=== PATIENT | female | born 1960 | race Caucasian/White ===

== ENCOUNTER → 2019-11-25 14:10 | Outpatient (BNVA) | payer SELFPAY | PROVIDERS: Family Provider Nurse Practitioner; PCP Family Medicine; Visit Provider Family Medicine | DX: E78.2 Mixed hyperlipidemia (principal); K21.9 Gastro-esophageal reflux disease without esophagitis | CPT/HCPCS: 80053 ==

== ENCOUNTER → 2020-04-08 10:08 | Outpatient (BNVA) | payer OTHER, SELFPAY | PROVIDERS: Family Provider Nurse Practitioner; PCP Family Medicine; Visit Provider Family Medicine | DX: E78.2 Mixed hyperlipidemia (principal); M76.31 Iliotibial band syndrome, right leg | CPT/HCPCS: 80061 ==

== ENCOUNTER → 2020-06-01 09:23 | Outpatient (BNVA) | payer OTHER, SELFPAY | PROVIDERS: Family Provider Nurse Practitioner; PCP Family Medicine; Visit Provider Internal Medicine | DX: Z01.812 Encounter for preprocedural laboratory examination (principal); Z20.828 Contact with and (suspected) exposure to other viral communicable diseases | CPT/HCPCS: 87635 ==

== ENCOUNTER 2020-06-06 07:58 | Day surgery (SDC) | payer OTHER, SELFPAY ==
[2020-06-02 10:29] VITALS: BMI 40.2
[2020-06-06 08:12] VITALS: BP 127/88; PULSE 93; RESP 16; TEMP 36.2; O2SAT 97
[2020-06-06] MEDS: sodium chloride 0.9% 1,000 ML 30 ML IV (08:20)
--- NOTE | 2020-06-06 08:46 | P.ANESASSM_ITS ---
Pre-Anesthetic Assessment Pre-Anesthetic Assessment: Height/Weight: Height 1.57 m Weight 99.79 kg Temp Pulse Resp BP Pulse Ox 97.1 F L 93 16 127/88 97 06/06/20 08:12 06/06/20 08:12 06/06/20 08:12 06/06/20 08:12 06/06/20 08:12 Preop Diagnosis: screening Proposed Procedure: Operation Date: 06/06/20 09:00 Proposed Procedures p Colonoscopy 89885 Z12.11(Not Applicable) - Bk Abbasi MD Familial anesthetic complications: None Was Beta Dalia taken within 24 hours: N/A Last intake: Intake Last Liquid Date 06/05/20 Last Liquid Time 23:00 Last Solid Date 06/04/20 Last Solid Time 19:00 Social: Social History: No alcohol and No tobacco Exam: Pre-Anes Outpt Exam: alert, oriented x 3, clear to auscultation bilatera lly and regular rate & rhythm Airway: Cervical ROM: WNL MP: 2 Dentition: Full Pulmonary: Pulmonary: Sleep apnea CV/HEM: CV/HEM: HTN GI: GI: GERD Metabolic: Metabolic: Hyperlipidemia, Morbid obesity and Thyroid Neuropsych: Neuropsych: Anxiety, Depression and Neuropathy Anesthetic Plan: ASA status: 3 Anesthesia: MAC Risk of > 500 ml blood loss (7ml/kg in children): No PFSH Anesthesia PFSH: Medical History Acid reflux Adult onset hypothyroidism Anxiety and depression Essential (primary) hypertension Mixed hyperlipidemia Obesity CAL on CPAP Surgical History History of hysterectomy 2003 with right SO has left ovary History of tubal ligation Status post rotator cuff repair 2011 Left Family History Family/Other Diabetes Heart disease Social History Smoking and tobacco status: never smoked Second hand smoke exposure: No Smoking risk assessment/counseling performed?: No Alcohol intake: never Desire information about alcohol rehabilitation?: No Counseling given: No Desire information about substance/drug rehabilitation?: No Counseling given: No Caregiver/support person: No Lives independently: Yes Household members: spouse Housing: House Marital status: Number of children: 3 service: No Current occupational status: employed Pets and animals: No History of recent travel: No Current gender identity: Female Data Anesthesia Cardiac Studies: No Data to Display
--- NOTE | 2020-06-06 09:31 | W.PM.OPSUD ---
Surgery/Procedure H&P Update DATE OF PROCEDURE: June 06, 2020 DATE H&P PERFORMED: 05/23/20 PREOP DIAGNOSIS: screening PLANNED PROCEDURE: Operation Date: 06/06/20 09:00 Proposed Procedures p Colonoscopy 06501 Z12.11(Not Applicable) - Bk Abbasi MD
[2020-06-06 10:34] VITALS: BP 126/76; PULSE 82; RESP 20; TEMP 36.2; O2SAT 93
[2020-06-06 10:49] VITALS: BP 131/78; PULSE 84; RESP 16; TEMP 36.4; O2SAT 98
--- NOTE | 2020-06-06 15:49 | ANE.PACU2 ---
Inpatient post-anesthesia follow up: Airway intact: Yes Vital signs: Temperature 97.5 F Pulse Rate 84 Respiratory Rate 16 Blood Pressure 131/78 Pulse Oximetry 98 Oxygen Delivery Me thod Room Air Oxygen Flow Rate 2 Fraction of Inspir ed Oxygen Hydration adequate: Yes Nausea and vomiting: No Pain level: 2 Mental status: Baseline
== END 2020-06-06 11:35 | disposition home or self-care (01) ==
PROVIDERS: PCP Family Medicine; Visit Provider Internal Medicine
PROC: 0DJD8ZZ Inspection of Lower Intestinal Tract, Via Natural or Artificial Opening Endoscopic (ICD-10-PCS; CPT 45378; principal; 2020-06-06 09:00)
DX: Z12.11 Encounter for screening for malignant neoplasm of colon (principal); Z79.82 Long term (current) use of aspirin; E03.9 Hypothyroidism, unspecified; F41.9 Anxiety disorder, unspecified; F32.9 Major depressive disorder, single episode, unspecified; K21.9 Gastro-esophageal reflux disease without esophagitis; I10 Essential (primary) hypertension; E78.2 Mixed hyperlipidemia; G47.33 Obstructive sleep apnea (adult) (pediatric); E66.01 Morbid (severe) obesity due to excess calories; Z68.41 Body mass index [BMI] 40.0-44.9, adult; Z83.3 Family history of diabetes mellitus; Z82.49 Family history of ischemic heart disease and other diseases of the circulatory system
CPT/HCPCS: 45378; J2704; J7030

== ENCOUNTER 2020-06-27 13:21 | Outpatient (CLI) | payer OTHER, SELFPAY ==
--- NOTE | 2020-06-27 13:27 | MM_ITS ---
WS: [id number] BILATERAL DIGITAL SCREENING MAMMOGRAPHY WITH CAD CLINICAL INFORMATION: SCREENING HISTORY: Screening mammogram. No current complaints. COMPARISON: February 26, 2019 TECHNIQUE: Bilateral CC and MLO views. FINDINGS: Scattered fibroglandular densities bilaterally. No suspicious focal mass, asymmetry, calcifications, or architectural distortion. No evidence of malignancy. Punctate and lucent centered calcifications. A few stable intramammary lymph nodes. MM/[place] [id number] IMPRESSION: BI-RADS: 2-Benign FOLLOW UP: 1 Year Follow-up Recommend return to annual screening mammography.
== END 2020-06-27 13:22 | disposition home or self-care (01) ==
LOC: RADSHAW 13:25
PROVIDERS: PCP Family Medicine; Visit Provider Family Medicine
DX: Z12.31 Encounter for screening mammogram for malignant neoplasm of breast (principal)
CPT/HCPCS: 77067

== ENCOUNTER → 2020-10-03 09:39 | Outpatient (BNVA) | payer OTHER, SELFPAY | PROVIDERS: PCP Family Medicine; Visit Provider Family Medicine | DX: I10 Essential (primary) hypertension (principal); E03.8 Other specified hypothyroidism; F41.9 Anxiety disorder, unspecified; F32.9 Major depressive disorder, single episode, unspecified | CPT/HCPCS: 80053; 82043; 84443; 85025 ==

== ENCOUNTER → 2020-10-04 11:45 | Outpatient (BNVA) | payer OTHER, SELFPAY | PROVIDERS: PCP Family Medicine; Visit Provider Family Medicine | DX: I10 Essential (primary) hypertension (principal); E03.8 Other specified hypothyroidism; F41.9 Anxiety disorder, unspecified; F32.9 Major depressive disorder, single episode, unspecified; D64.9 Anemia, unspecified | CPT/HCPCS: 82607; 82728; 83550 ==

== ENCOUNTER → 2020-10-09 15:07 | Outpatient (BNVA) | payer OTHER, SELFPAY | PROVIDERS: PCP Family Medicine; Visit Provider Family Medicine Adult Medicine | DX: S52.514A Nondisplaced fracture of right radial styloid process, initial encounter for closed fracture (principal); X58.XXXA Exposure to other specified factors, initial encounter | CPT/HCPCS: 73110 ==

== ENCOUNTER 2020-10-12 09:55 | Outpatient (CLI) | payer OTHER, SELFPAY | END 2020-10-12 09:56 | disposition home or self-care (01) | LOC: SPT 09:55 | PROVIDERS: PCP Family Medicine; Visit Provider Orthopaedic Surgery | DX: Z46.89 Encounter for fitting and adjustment of other specified devices (principal); S52.591D Other fractures of lower end of right radius, subsequent encounter for closed fracture with routine healing; X58.XXXD Exposure to other specified factors, subsequent encounter | CPT/HCPCS: 97760; L3982 ==

== ENCOUNTER → 2020-10-26 15:15 | Outpatient (BNVA) | payer OTHER, SELFPAY | PROVIDERS: PCP Family Medicine; Visit Provider Orthopaedic Surgery | DX: S52.501A Unspecified fracture of the lower end of right radius, initial encounter for closed fracture (principal); X58.XXXA Exposure to other specified factors, initial encounter | CPT/HCPCS: 73110 ==

== ENCOUNTER → 2020-11-16 14:54 | Outpatient (BNVA) | payer OTHER, SELFPAY | PROVIDERS: PCP Family Medicine; Visit Provider Orthopaedic Surgery | DX: S52.501A Unspecified fracture of the lower end of right radius, initial encounter for closed fracture (principal); X58.XXXA Exposure to other specified factors, initial encounter | CPT/HCPCS: 73110 ==

== ENCOUNTER → 2020-12-14 10:11 | Outpatient (BNVA) | payer OTHER, SELFPAY | PROVIDERS: PCP Family Medicine; Visit Provider Orthopaedic Surgery | DX: S52.501A Unspecified fracture of the lower end of right radius, initial encounter for closed fracture (principal); X58.XXXA Exposure to other specified factors, initial encounter | CPT/HCPCS: 73110 ==

== ENCOUNTER → 2021-02-21 15:12 | Outpatient (BNVA) | payer OTHER, SELFPAY | PROVIDERS: PCP Family Medicine; Visit Provider Family Medicine | DX: D50.9 Iron deficiency anemia, unspecified (principal) | CPT/HCPCS: 82728; 83550; 85025 ==

== ENCOUNTER → 2021-03-28 15:12 | Outpatient (BNVA) | payer OTHER, SELFPAY | PROVIDERS: PCP Family Medicine; Visit Provider Nurse Practitioner | DX: S69.92XA Unspecified injury of left wrist, hand and finger(s), initial encounter (principal); S52.532A Colles' fracture of left radius, initial encounter for closed fracture; X58.XXXA Exposure to other specified factors, initial encounter | CPT/HCPCS: 73110 ==

== ENCOUNTER → 2021-04-04 09:51 | Outpatient (BNVA) | payer OTHER, SELFPAY | PROVIDERS: PCP Family Medicine; Referring Provider Nurse Practitioner; Visit Provider Orthopaedic Surgery | DX: S59.912A Unspecified injury of left forearm, initial encounter (principal); S52.532A Colles' fracture of left radius, initial encounter for closed fracture; X58.XXXA Exposure to other specified factors, initial encounter | CPT/HCPCS: 73110 ==

== ENCOUNTER 2021-04-04 11:34 | Outpatient (CLI) | payer OTHER, SELFPAY | END 2021-04-04 11:35 | disposition home or self-care (01) | LOC: SPT 11:34 | PROVIDERS: PCP Family Medicine; Visit Provider Orthopaedic Surgery | DX: Z46.89 Encounter for fitting and adjustment of other specified devices (principal); S52.592D Other fractures of lower end of left radius, subsequent encounter for closed fracture with routine healing; X58.XXXD Exposure to other specified factors, subsequent encounter | CPT/HCPCS: 97760; L3982 ==

== ENCOUNTER → 2021-04-10 14:27 | Outpatient (BNVA) | payer OTHER, SELFPAY | PROVIDERS: PCP Family Medicine; Visit Provider Orthopaedic Surgery | DX: S52.532A Colles' fracture of left radius, initial encounter for closed fracture (principal); S52.615A Nondisplaced fracture of left ulna styloid process, initial encounter for closed fracture; X58.XXXA Exposure to other specified factors, initial encounter | CPT/HCPCS: 73110 ==

== ENCOUNTER → 2021-04-19 14:38 | Outpatient (BNVA) | payer OTHER, SELFPAY | PROVIDERS: PCP Family Medicine; Visit Provider Orthopaedic Surgery | DX: S52.592A Other fractures of lower end of left radius, initial encounter for closed fracture (principal); S52.615A Nondisplaced fracture of left ulna styloid process, initial encounter for closed fracture; X58.XXXA Exposure to other specified factors, initial encounter; Z01.812 Encounter for preprocedural laboratory examination; Z20.822 Contact with and (suspected) exposure to COVID-19 | CPT/HCPCS: 73110; 87635 ==

== ENCOUNTER 2021-04-20 09:05 | Day surgery (SDC) | payer OTHER, SELFPAY ==
[2021-04-20] VITALS (14 sets, daily range): BP systolic 148–172; BP diastolic 78–105; PULSE 70–106; RESP 6–18; TEMP 36.3–36.7; O2SAT 93–100
--- NOTE | 2021-04-20 | SCC_ITS ---
Procedure Done: Open reduction and internal fixation left three-part distal radius fracture 51. seconds of fluoroscopic guidance, for a cumulative dose of 0.99 mGy, was provided to Dr. Ruiz by the radiology department. C-arm images of the LEFT wrist were saved for the patient's permanent record. [facility]ITALRaymond
--- NOTE | 2021-04-20 | XR_ITS ---
WS: [id number] INTRAOPERATIVE TECHNIQUE: 4 Spot fluoroscopic images for intraoperative purposes. FLUOROSCOPY TIME: 51 seconds CLINICAL INFORMATION: fracture of left distal radius COMPARISON: None. FINDINGS: Intraoperative changes plate and screw fixation distal radius. Hardware appears in good position. Sta ble ulna styloid avulsion. XR/XR wrist LT 2V [id number] IMPRESSION: Images obtained for intraoperative purposes.
[2021-04-20] MEDS: sodium chloride 0.9% 1,000 ML 30 ML IV (09:51)
--- NOTE | 2021-04-20 09:54 | ANES.PREANE2 ---
Pre-Anesthetic Assessment Pre-Anesthetic Assessment: Height/Weight: Height 1.57 m Weight 102.058 kg Temp Pulse Resp BP Pulse Ox 97.5 F L 88 18 150/78 94 04/20/21 09:48 04/20/21 09:48 04/20/21 09:48 04/20/21 09:48 04/20/21 09:48 Preop Diagnosis: FractureLeft distal radius Proposed Procedure: Operation Date: 04/20/21 10:20 Proposed Procedures p ORIF Wrist 69847/colles fracture of left S52. 532A(Left) - Js Ruiz MD Was Beta Dalia taken within 24 hours: N/A Was Clonidine taken within 24 hours: N/A Last intake: Intake Last Liquid Date 04/19/21 Last Liquid Time 21:00 Last Solid Date 04/19/21 Last Solid Time 21:00 Social: Social History: No alcohol and No tobacco Exam: Pre-Anes Outpt Exam: alert, oriented x 3, clear to auscultation bilaterally and regular rate & rhythm Airway: Submandibular: WNL Cervical ROM: WNL MP: 2 Dentition: Full Pulmonary: Pulmonary: Sleep apnea CV/HEM: CV/HEM: Anemia and HTN GI: GI: GERD Metabolic: Metabolic: Hyperlipidemia and Morbid obesity Neuropsych: Neuropsych: Anxiety and Depression Anesthetic Plan: ASA status: 3 Anesthesia: General Risk of > 500 ml blood loss (7ml/kg in children): No Meds/Allergies Current Medications: Current Medications Generic Name Dose Route Start Last Admin Trade Name Freq PRN Reason Stop Dose Admin Sodium Chloride 1,000 mls @ 30 ml s/hr 04/20/21 09:15 04/20/21 09:51 Sodium Chloride 0.9% IV 04/21/21 09:14 30 mls/hr .Q24H BALDO Administration PFSH Anesthesia PFSH: Medical History Acid reflux Adult onset hypothyroidism Anxiety and depression Distal radius fracture, right Essential (primary) hypertension Mixed hyperlipidemia Obesity CAL on CPAP Surgical History History of hysterectomy 2003 with right SO has left ovary History of tubal ligation Status post rotator cuff repair 2011 Left Family History Family/Other Diabetes Heart disease Social History Second hand smoke exposure: No Smoking risk assessment/counseling performed?: No Alcohol intake: never Desire information about alcohol rehabilitation?: No Counseling given: No Desire information about substance/drug rehabilitation?: No Counseling given: No Caregiver/support person: No Lives independently: Yes Household members: spouse Housing: House Marital status: Number of children: 3 service: No Current occupational status: employed Pets and animals: No History of recent travel: No Current gender identity: Female Data Anesthesia Cardiac Studies: No Data to Display
--- NOTE | 2021-04-20 11:21 | W.PM.OPSUD ---
Surgery/Procedure H&P Update DATE OF PROCEDURE: April 20, 2021 DATE H&P PERFORMED: 04/19/21 H&P UPDATE INFORMATION: I have reviewed H&P completed within last 30 days PREOP DIAGNOSIS: FractureLeft distal radius PLANNED PROCEDURE: Operation Date: 04/20/21 10:20 Proposed Procedures p ORIF Wrist 87987/colles fracture of left S52. 532A(Left) - Js Ruiz MD
--- NOTE | 2021-04-20 12:52 | P.OP_ITS ---
Operative Report Date of procedure: April 20, 2021 Pre-op Diagnosis: 3 part fracture Left distal radius Post-op diagnosis: same Post-op Findings: The patient had a intra-articular fracture of the left distal radius with approximately 40 degrees of dorsal angulation of the articular surface Procedure Done: Open reduction and internal fixation left three-part distal radius fracture Implants: [employer] short intermediate plate Surgeon: Js Ruiz Anesthesia: General Estimated blood loss (mL): 10 Complications: None Findings: The patient had a intra-articular fracture of the left distal radius with approximately 40 degrees of dorsal angulation of the articular surface. Associated ulnar styloid fracture was identified Disposition: PACU Brief History: Ms. Justin sustained a fracture of the left distal radius with progressive loss of volar articular tilt and intra-articular displacement. Surgical stabilization was chosen to return the distal radius to more normal radiographic parameters ensuring the least pain and best functional outcome Procedure: Initial attempts were made at closed reduction however a satisfactory stable reduction could not be obtained. A decision was made to proceed with open reduction internal fixation.A 5 cm long incision was made along over the flexor carpi radialis tendon. Dissection was carried down through the tendon sheath. Dissection was carried down bluntly to the pronator quadratus. The pr onator quadratus was elevated off of the distal radius leaving a cuff for later repair. Closed reduction was accomplished of the distal radius. A [place] [employer] intermediate short plate was applied. With closed measures through the joint it was a difficult to return the distal radius back to normal volar tilt. A small 5 mm dorsal accessory incision was made. Dissection was carried down bluntly to the distal radius. A freer elevator was then passed across the fracture and retracted distally bringing the distal radius to a more normal volar tilt. The plate was fixed distally with 4 2.4 mm locking screws and proximally with 3 bicortical screws. Intraoperative imaging showed excellent position of the hardware. The wound was irrigated with saline. The pronator quadratus was reapproximated with 2-0 Vicryl. Subcutaneous tissues were closed with 2-0 Vicryl. The skin was closed with skin katharine. Sterile dressings were applied. Repeat prefabricated splint was applied. The patient was taken to outpatient surgery in stable condition.
[2021-04-20] MEDS: fentaNYL 50 mcg/mL INJ 2mL IVP ×2 (13:06→13:12)
[2021-04-20] MEDS: HYDROmorphone 1 mg/mL INJ 1 mL 0.5 MG IVP (13:21)
[2021-04-20] MEDS: HYDROcodone-acetaminophen 5-325 mg Tablet 1 TAB PO (13:37)
--- NOTE | 2021-04-20 16:20 | ANE.PACU2 ---
Inpatient post-anesthesia follow up: Airway intact: Yes Vital signs: Temperature 98.1 F Pulse Rate 70 Respiratory Rate 16 Blood Pressure 167/94 Pulse Oximetry 94 Oxygen Delivery Me thod Room Air Oxygen Flow Rate 10 Fraction of Inspir ed Oxygen Hydration adequate: Yes Nausea and vomiting: No Pain level: 2 Mental status: Baseline
== END 2021-04-20 14:25 | disposition home or self-care (01) ==
PROVIDERS: PCP Family Medicine; Visit Provider Orthopaedic Surgery
PROC: (CPT 25609; principal; 2021-04-20 10:20)
DX: S52.572A Other intraarticular fracture of lower end of left radius, initial encounter for closed fracture (principal); X58.XXXA Exposure to other specified factors, initial encounter; I10 Essential (primary) hypertension; K21.9 Gastro-esophageal reflux disease without esophagitis; E78.2 Mixed hyperlipidemia; E66.01 Morbid (severe) obesity due to excess calories; Z68.41 Body mass index [BMI] 40.0-44.9, adult; F41.9 Anxiety disorder, unspecified; F32.9 Major depressive disorder, single episode, unspecified; E03.9 Hypothyroidism, unspecified; G47.33 Obstructive sleep apnea (adult) (pediatric); Z82.49 Family history of ischemic heart disease and other diseases of the circulatory system; Z83.3 Family history of diabetes mellitus; Z79.82 Long term (current) use of aspirin
CPT/HCPCS: 25609; 73100; 76000; 96372; C1713; J0690; J1100; J1170; J1580; J2405; J2704; J2710; J2795; J3010; J3490; J7030

== ENCOUNTER → 2021-05-24 10:53 | Outpatient (BNVA) | payer OTHER, SELFPAY | PROVIDERS: PCP Family Medicine; Visit Provider Orthopaedic Surgery | DX: S52.532A Colles' fracture of left radius, initial encounter for closed fracture (principal); X58.XXXA Exposure to other specified factors, initial encounter | CPT/HCPCS: 73110 ==

== ENCOUNTER → 2021-09-13 08:07 | Outpatient (BNVA) | payer OTHER, SELFPAY | PROVIDERS: PCP Family Medicine; Visit Provider Family Medicine | DX: Z12.31 Encounter for screening mammogram for malignant neoplasm of breast (principal); I10 Essential (primary) hypertension; E78.2 Mixed hyperlipidemia; E03.8 Other specified hypothyroidism | CPT/HCPCS: 80053; 80061; 82043; 84443; 85025 ==

== ENCOUNTER 2021-12-27 11:57 | Outpatient (CLI) | payer OTHER, SELFPAY ==
--- NOTE | 2021-12-27 12:06 | MM_ITS ---
WS: [id number] Bilateral screening 3D tomosynthesis digital mammogram, 12/27/2021 Clinical Data: SCREENING Comparison: 06/27/2020, 02/26/2019, 01/17/2018, 01/14/2017, 09/30/2015, 09/25/2012, 08/24/2011, 12/08/2007, 11/13. Findings: The breast parenchymal pattern shows fat replacement. No spiculated masses or clustered calcification s are seen. There are no secondary signs of carcinoma. Mole markers are on both breasts. MM/[place] [id number] Impression: 1. Negative bilateral mammogram unchanged. 2. Recommend annual screening mammograms. BIRADS: 1-Negative FOLLOW UP: 1 Year Follow-up The CAD checkerer hand was used.
== END 2021-12-27 11:58 | disposition home or self-care (01) ==
LOC: RAD 11:58
PROVIDERS: PCP Family Medicine; Visit Provider Family Medicine
DX: Z12.31 Encounter for screening mammogram for malignant neoplasm of breast (principal)
CPT/HCPCS: 77063; 77067

== ENCOUNTER 2022-02-15 11:57 | Outpatient (CLI) | payer OTHER, SELFPAY ==
--- NOTE | 2022-02-15 12:00 | USCV_ITS ---
Rosa Justin Age: 61 Gender: F : 1960 Exam Date: 02/15/2022 12:39 Ordering Phys: Leydi Bojorquez DO Technologist: Neftali Pozo [place] [facility] [place] Indication: SYNCOPE AND COLLAPSE BP: 142 / 78 HR: 74 Rhythm: Sinus Technical Quality: Adequate MEASUREMENTS (Male / Female) Normal Values 2D ECHO LV Diastolic Diameter PLAX 3.8 cm 4.2 - 5.9 / 3.9 - 5.3 cm LV Systolic Diameter PLAX 2.7 cm IVS Diastolic Thickness 0.9 cm 0.6 - 1.0 / 0.6 - 0.9 cm IVS Systolic Thickness 1.5 cm LVPW Diastolic Thickness 1.1 cm 0.6 - 1.0 / 0.6 - 0.9 cm LVPW Systolic Thickness 1.4 cm LVOT Diameter 2.0 cm LV Ejection Fraction 2D Teich 57.5 % LV Ejection Fraction MOD 2C 65.9 % LV Ejection Fraction 2C AL 67.1 % LA Diameter 3.8 cm LA Width 3.2 cm LA Height 4.3 cm RA Width 3.3 cm RA Height 4.2 cm Aorta at Sinotubular Diameter 2.9 cm IVC Diameter 1.5 cm M-MODE Aortic Annulus Diameter 3.1 cm LA Ao Ratio MM 1.4 MV E Point Septal Separation 0.5 cm DOPPLER AV Peak Velocity 109.0 cm/s LVOT Peak Velocity 80.0 cm/s AV Area Cont Eq vti 2.4 cm squared AV Area Cont Eq pk 2.3 cm squared MV Peak Velocity 75.0 cm/s MV Area PHT 5.6 cm squared Mitral E to A Ratio 0.8 MV E' Velocity 33.0 cm/s Mitral E to MV E' Ratio 5.2 Mitral E to LV E' Lateral Ratio 4.2 Mitral E to LV E' Septal Ratio 6.8 TR Peak Velocity 229.8 cm/s TR Peak Gradient 21.1 mmHg TR Mean Velocity 187.9 cm/s TR Mean Gradient 14.9 mmHg TR Velocity Time Integral 77.1 cm Right Atrial Pressure 3.0 mmHg Pulmonary Artery Systolic Pressu 24.1 mmHg PV Peak Velocity 72.0 cm/s RV Acceleration Time 0.1 s RV Ejection Time 0.3 s RV AcT/ET 0.4 FINDINGS Left Ventricle Normal left ventricular size, systolic function and wall thickness, with no regional wall motion abnormalities. Left ventricular ejection fraction is estimated at 70 %. Normal diastolic function. Right Ventricle Normal right ventricular size and systolic function. Right ventricular systolic pressure 27 mmHg. Right Atrium Normal right atrial size. Left Atrium Normal left atrial size. Mitral Valve Structurally normal mitral valve. No mitral valve stenosis. Trace mitral valve regurgitation. Aortic Valve Structurally normal trileaflet aortic valve. No aortic valve stenosis. No aortic valve regurgitation. Tricuspid Valve Structurally normal tricuspid valve. No tricuspid valve stenosis. [id number]-[id number] tricuspid valve regurgitation. Pulmonic Valve Structurally normal pulmonic valve. No pulmonary valve stenosis. No pulmonary valve regurgitation. Pericardium No pericardial effusion. Aorta Normal size aortic root and proximal ascending aorta. IVC Normal IVC dimension with >50% respiratory change of the inferior vena cava. CONCLUSIONS 1. Normal left ventricular size, systolic function and wall thickness, with no regional wall motion abnormalities. Left ventricular ejection fraction is estimated at 70 %. Normal diastolic function. 2. Wfrj-fo-suwullns tricuspid valve regurgitation. 3. Pulmonary artery pressure estimated at 27 mm Hg. 4. No prior similar studies to compare. Hailey Valle MD (Electronically Signed) Final Date: 18 February 2022 09:53 S
--- NOTE | 2022-02-15 12:45 | USCV_ITS ---
Rosa Justin Age: 61 Gender: F : 1960 Exam Date: 02/15/2022 12:16 Ordering Phys: Leydi Bojorquez DO Technologist: Neftali Pozo [place] [facility] [place]ication: SYNCOPE AND COLLAPSE Risk Factors: Previous Vascular Surgery: Right Brachial BP: / Left Brachial BP: / Right Left Velocity (cm/s) Spectral Plaque Velocity (cm/s) Spectral Plaque Syst/Diast Broadening Syst/Diast Broadening 61.60/ 14.50 Prox CCA 93.00 / 18.20 92.60/ 17.60 Mid CCA 63.80 / 14.50 94.80/ 23.20 Distal CCA 64.40 / 19.70 55.90/ 8.50 Prox ICA 37.70 / 13.90 55.00/ 21.50 Mid ICA 47.50 / 18.80 58.60/ 21.10 Distal ICA 58.00 / 22.50 95.50 ECA 91.70 0.59 ICA/CCA 0.75 Antegrade Vertebral Antegrade 23.10/ 9.40 cm/s 52.00/ 15.50 cm/s Tri Subclavian Tri 76.90 88.00 FINDINGS Comparison: none available. No significant elevation of systolic or diastolic velocities. Waveforms are normal. No significant amount of calcified plaque or intimal thickening identified. CONCLUSIONS Normal carotid doppler ultrasound. Dr. Kailee Garza DO (Electronically Signed) Final Date: 15 February 2022 14:58 S
== END 2022-02-15 11:58 | disposition home or self-care (01) ==
LOC: RAD 11:59
PROVIDERS: PCP Family Medicine; Visit Provider Family Medicine
DX: R55 Syncope and collapse (principal); I07.1 Rheumatic tricuspid insufficiency
CPT/HCPCS: 93306; 93880

== ENCOUNTER 2022-04-05 15:18 | Outpatient (CLI) | payer OTHER, SELFPAY ==
--- NOTE | 2022-04-05 15:15 | MR_ITS ---
WS: [id number] MRI CERVICAL SPINE NONCONTRAST TECHNIQUE: Sagittal T1, T2 and STIR imaging. Axial T2, gradient, and fiesta imaging. CLINICAL INFORMATION: DJD cervical spine COMPARISON: None. FINDINGS: Straightening of the normal cervical lordosis. Cord signal is normal. No high-grade central canal ana m rowing. C2-C3: Mild facet arthropathy. Spinal canal and foramen are patent. C3-C4: Mild facet arthropathy. Spinal canal and foramen are patent. C4-C5: Minimal disc bulging. Mild facet arthropathy. Spinal canal is patent. Mild LEFT foraminal narr owing. C5-C6: Minimal disc bulging with osteophytic ridging. Moderate LEFT facet arthropathy. Mild LEFT fora wilberto narrowing. Spinal canal is patent. C6-C7: Mild disc bulging with osteophytic ridging. Facet arthropathy. Mild LEFT and no significant RI GHT foraminal narrowing. C7-T1: Osteophytic ridging. Moderate LEFT C7-T1 bony foraminal narrowing. RIGHT foramen is patent. Sp inal canal is patent. Visualized brain stem structures: Normal. Prevertebral soft tissues: Normal. MR/MR cervical spin wo con* [id number] IMPRESSION: 1. Straightening of the normal cervical lordosis. Cord signal is normal. 2. Mild bony foraminal narrowing LEFT C3-C4, LEFT C4-C5, and LEFT C5-C6. 3. Moderate LEFT C7-T1 bony foraminal narrowing. 4. Moderate facet arthropathy LEFT C5-C6. 5. Cord signal is normal.
== END 2022-04-05 15:19 | disposition home or self-care (01) ==
PROVIDERS: PCP Family Medicine; Visit Provider Family Medicine
DX: M47.812 Spondylosis without myelopathy or radiculopathy, cervical region (principal)
CPT/HCPCS: 72141

== ENCOUNTER → 2022-09-20 07:55 | Outpatient (BNVA) | payer OTHER, SELFPAY | PROVIDERS: PCP Family Medicine; Visit Provider Family Medicine | DX: I10 Essential (primary) hypertension (principal); E78.2 Mixed hyperlipidemia; E03.8 Other specified hypothyroidism; D50.9 Iron deficiency anemia, unspecified; D50.8 Other iron deficiency anemias; F41.9 Anxiety disorder, unspecified; F32.9 Major depressive disorder, single episode, unspecified; Z12.31 Encounter for screening mammogram for malignant neoplasm of breast | CPT/HCPCS: 80053; 80061; 82043; 82728; 83550; 84443; 85025 ==

== ENCOUNTER 2022-12-28 07:46 | Outpatient (CLI) | payer OTHER, SELFPAY ==
--- NOTE | 2022-12-28 07:51 | MM_ITS ---
WS: [id number] Bilateral screening 3D tomosynthesis digital mammogram, 12/28/2022 Clinical Data: screening mammogram Comparison: 11/26/2021, 06/27/2020, 02/26/2019, 01/17/2018, 01/14/2017, 09/30/2015, 09/25/2012, 08/24/2011, 2007, 11/13/2006. Findings: The breast parenchymal pattern shows fat replacement. No spiculated masses or clustered calcification s are seen. There are no secondary signs of carcinoma. Impression: 1. Negative bilateral mammogram unchanged. 2. Recommend annual screening mammograms. MM/[place] [id number] BIRADS: 1-Negative FOLLOW UP: 1 Year Follow-up The CAD thread checker was used.
== END 2022-12-28 07:47 | disposition home or self-care (01) ==
PROVIDERS: PCP Family Medicine; Visit Provider Family Medicine
DX: Z12.31 Encounter for screening mammogram for malignant neoplasm of breast (principal)
CPT/HCPCS: 77063; 77067; 80053; 80061; 82043; 82728; 83550; 84443; 85025

== ENCOUNTER → 2023-03-21 08:19 | Outpatient (BNVA) | payer OTHER, SELFPAY | PROVIDERS: PCP Family Medicine; Visit Provider Family Medicine | DX: E03.8 Other specified hypothyroidism (principal); I10 Essential (primary) hypertension; F41.9 Anxiety disorder, unspecified; F32.9 Major depressive disorder, single episode, unspecified; M53.3 Sacrococcygeal disorders, not elsewhere classified; G89.29 Other chronic pain | CPT/HCPCS: 84443 ==

== ENCOUNTER → 2023-09-19 08:21 | Outpatient (BNVA) | payer OTHER, SELFPAY | PROVIDERS: PCP Family Medicine; Visit Provider Family Medicine | DX: I10 Essential (primary) hypertension (principal); Z13.6 Encounter for screening for cardiovascular disorders; E03.8 Other specified hypothyroidism; D50.9 Iron deficiency anemia, unspecified; D50.8 Other iron deficiency anemias; E78.2 Mixed hyperlipidemia; M53.3 Sacrococcygeal disorders, not elsewhere classified; G89.29 Other chronic pain; Z79.899 Other long term (current) drug therapy | CPT/HCPCS: 80053; 80061; 82043; 82728; 83550; 84443; 85025 ==

== ENCOUNTER 2023-10-09 08:28 | Outpatient (RCR) | payer OTHER, SELFPAY | END 2023-10-20 23:59 | disposition home or self-care (01) | LOC: SPT 08:28 | PROVIDERS: PCP Family Medicine; Visit Provider Family Medicine | DX: M53.3 Sacrococcygeal disorders, not elsewhere classified (principal); G89.29 Other chronic pain | CPT/HCPCS: 97110; 97161 ==

== ENCOUNTER 2023-10-28 11:06 | Outpatient (RCR) | payer OTHER, SELFPAY | END 2023-11-20 23:59 | disposition home or self-care (01) | LOC: SPT 11:06 | PROVIDERS: PCP Family Medicine; Visit Provider Family Medicine | DX: M53.3 Sacrococcygeal disorders, not elsewhere classified (principal); G89.29 Other chronic pain | CPT/HCPCS: 97110 ==

== ENCOUNTER → 2023-11-21 14:56 | Outpatient (BNVA) | payer OTHER, SELFPAY | PROVIDERS: PCP Family Medicine Adult Medicine; Visit Provider Family Medicine Adult Medicine | DX: E03.8 Other specified hypothyroidism (principal) | CPT/HCPCS: 84443 ==

== ENCOUNTER 2024-02-14 07:56 | Outpatient (CLI) | payer OTHER, SELFPAY ==
--- NOTE | 2024-02-14 08:03 | MM_ITS ---
WS: [id number] BILATERAL SCREENING DIGITAL TOMOSYNTHESIS MAMMOGRAM WITH CAD HISTORY: SCREENING COMPARISON: 12/28/2022, 12/27/2021 and 02/26/2019 Bilateral CC and MLO views with tomosynthesis and synthetic mammography submitted. Computer aided det ection analyzed. Breast composition: The breasts are almost entirely fatty. No suspicious masses, microcalcifications or architectural distortion. Scattered asymmetries and calcifications are stable. No suspicious group ing of calcification. MM/MM scr BI tomosynthesis [id number] IMPRESSION: BI-RADS: 2 - Benign. FOLLOW UP: 1 Year Follow-up
== END 2024-02-14 07:57 | disposition home or self-care (01) ==
LOC: RAD 07:56
PROVIDERS: PCP Family Medicine Adult Medicine; Visit Provider Family Medicine
DX: Z12.31 Encounter for screening mammogram for malignant neoplasm of breast (principal); R92.313 Mammographic fatty tissue density, bilateral breasts; N64.89 Other specified disorders of breast; R92.1 Mammographic calcification found on diagnostic imaging of breast
CPT/HCPCS: 77063; 77067

== ENCOUNTER → 2024-02-21 15:48 | Outpatient (BNVA) | payer OTHER, SELFPAY | PROVIDERS: PCP Family Medicine Adult Medicine; Visit Provider Family Medicine | DX: Z23 Encounter for immunization (principal); D50.8 Other iron deficiency anemias; E03.8 Other specified hypothyroidism | CPT/HCPCS: 83540; 84439; 84443; 85025 ==

== ENCOUNTER → 2024-08-20 08:30 | Outpatient (BNVA) | payer OTHER, SELFPAY | PROVIDERS: PCP Family Medicine; Visit Provider Family Medicine | DX: Z00.00 Encounter for general adult medical examination without abnormal findings (principal) | CPT/HCPCS: 80053; 80061; 84443; 85025 ==

== ENCOUNTER 2024-11-17 14:13 | Outpatient (CLI) | payer MEDICARE, OTHER, SELFPAY ==
--- NOTE | 2024-11-17 14:30 | XR_ITS ---
WS: [id number] SCREENING DEXA SCAN [employer] CLINICAL INFORMATION: screening; post menopausal FINDINGS: The L1-L4 bone mineral density measures 1.157 g/cm2. This corresponds to a T score score of -0.2 and Z score of 0.4. Left femoral neck bone mineral density measures 0.998 g/cm2. This corresponds to a T score of -0.1 and Z score of 0.4. Right femoral neck bone mineral density measures 1.040 g/cm2. This corresponds to a T score 0.3of and Z score of 0.7. Mean femoral neck bone mineral density measures 1.019 g/cm2. This corresponds to a T score of 0.1 and Z score of 0.5. XR/XR DEXA axial skeleton* [id number] IMPRESSION: Normal bone mineralization lumbar spine and femoral necks. Patient's FRAX calculated 10 year probability for major osteoporotic fracture i s 12.3% and osteoporotic hip fracture is 1.0%.
== END 2024-11-17 14:14 | disposition home or self-care (01) ==
LOC: RAD 14:17
PROVIDERS: PCP Family Medicine; Visit Provider Family Medicine
DX: Z13.820 Encounter for screening for osteoporosis (principal); Z78.0 Asymptomatic menopausal state
CPT/HCPCS: 77080

== ENCOUNTER → 2025-01-28 13:01 | Outpatient (BNVA) | payer MEDICARE, OTHER, SELFPAY | PROVIDERS: PCP Family Medicine; Visit Provider Family Medicine | DX: R10.11 Right upper quadrant pain (principal) | CPT/HCPCS: 80053; 83690; 85025 ==

== ENCOUNTER 2025-02-03 07:19 | Outpatient (CLI) | payer MEDICARE, OTHER, SELFPAY ==
--- NOTE | 2025-02-03 07:30 | US_ITS ---
WS: [id number] RIGHT UPPER QUADRANT ULTRASOUND HISTORY: postprandial nausea, bloating, epigastric pain COMPARISON: None available. Liver: 13.6 cm in length. Normal size liver and echogenicity. No bile duct dilatation or mass. Portal Vein: Normal hepatopetal flow with monophasic waveform. Gallbladder: Normally distended gallbladder with no stones or wall thickening. CBD: 0.4 cm Pancreas: Normal size and echogenicity. Right kidney: 8.0 cm in length. Kidney is measuring low normal length. No hydronephrosis or mass. No significant cortical thinning. Aorta and IVC: Unremarkable abdominal aorta and IVC. No ascites. Small RIGHT pleural effusion. US/US abdomen limited [id number] IMPRESSION: 1. Negative gallbladder. 2. Mild atrophy RIGHT kidney. No obstruction. 3. Negative liver. 4. Small RIGHT pleural effusion.
== END 2025-02-03 07:20 | disposition home or self-care (01) ==
LOC: RAD 07:20
PROVIDERS: PCP Family Medicine; Visit Provider Family Medicine
DX: R10.11 Right upper quadrant pain (principal); N26.1 Atrophy of kidney (terminal); J90 Pleural effusion, not elsewhere classified
CPT/HCPCS: 76705

== ENCOUNTER 2025-02-08 16:31 | Outpatient (CLI) | payer MEDICARE, OTHER, SELFPAY ==
--- NOTE | 2025-02-08 17:00 | CTR_ITS ---
PROCEDURE INFORMATION: Exam: CT Chest Without Contrast; Diagnostic Exam date and time: 02/08/2025 4:50 PM Age: 64 years old Clinical indication: Abdominal pain; Localized; Right lower quadrant (rlq); Other: Epigastric pain; Prior surgery; Surgery date: 6+ months; Surgery type: Left shoulder, hyst; Additional info: Ruq abd pain, bloating TECHNIQUE: Imaging protocol: Diagnostic computed tomography of the chest without contrast. Radiation optimization: All CT scans at this facility use at least one of these dose optimization techniques: automated exposure control; mA and/or kV adjustment per patient size (includes targeted exams where dose is matched to clinical indication); or iterative reconstruction. COMPARISON: MR cervical spin wo con* [id number] 04/05/2022 4:56 PM RADIATION DOSE METRICS: Total DLP (mGy-cm): 698.35 FINDINGS: Lungs: Unremarkable. No consolidation. No masses. Pleural spaces: Unremarkable. No pneumothorax. No pleural effusion. Heart: Unremarkable. No cardiomegaly. No pericardial effusion. Coronary arteries: There is no coronary artery calcification. Lymph nodes: Unremarkable. No enlarged lymph nodes. Vasculature: Unremarkable. No aortic aneurysm. Diaphragm: There is a moderate size retrocardiac hiatal hernia. Bones/joints: Unremarkable. No acute fracture. Soft tissues: Unremarkable. PROCEDURE INFORMATION: Exam: CT Abdomen Without Contrast Exam date and time: 02/08/2025 4:50 PM Age: 64 years old Clinical indication: Abdominal pain; Localized; Right lower quadrant (rlq); Other: Epigastric pain; Prior surgery; Surgery date: 6+ months; Surgery type: Left shoulder, hyst; Additional info: Ruq abd pain, bloating TECHNIQUE: Imaging protocol: Computed tomography of the abdomen without contrast. Radiation optimization: All CT scans at this facility use at least one of these dose optimization techniques: automated exposure control; mA and/or kV adjustment per patient size (includes targeted exams where dose is matched to clinical indication); or iterative reconstruction. COMPARISON: abdomen limited [id number] 02/03/2025 7:42 AM RADIATION DOSE METRICS: Total DLP (mGy-cm): 698.35 FINDINGS: Liver: Normal. No mass. Gallbladder and biliary ducts: Normal. No calcified stones. No ductal dilation. Pancreas: Normal. No ductal dilation. Spleen: Normal. No splenomegaly. Adrenal glands: Normal. No mass. Kidneys: Normal. No hydronephrosis. Stomach and bowel: There is a small duodenal diverticulum at the 3rd portion of the duodenum. The visualized small and large bowel are normal in caliber. There is a moderate size retrocardiac hiatal hernia. Intraperitoneal space: Unremarkable. No free air. No significant fluid collection. Vasculature: Unremarkable. No abdominal aortic aneurysm. Lymph nodes: Unremarkable. No enlarged lymph nodes. Bones/joints: There is mild degenerative changes throughout the visualized lumbar spine. Soft tissues: Unremarkable. CT/CT chest [facility] [id number] IMPRESSION: Moderate size retrocardiac hiatal hernia. IMPRESSION: No acute process.
== END 2025-02-08 16:32 | disposition home or self-care (01) ==
LOC: RAD 16:32
PROVIDERS: PCP Family Medicine; Visit Provider Family Medicine
DX: K44.9 Diaphragmatic hernia without obstruction or gangrene (principal); K57.10 Diverticulosis of small intestine without perforation or abscess without bleeding; M47.816 Spondylosis without myelopathy or radiculopathy, lumbar region
CPT/HCPCS: 71250; 74150

== ENCOUNTER 2025-02-19 07:52 | Outpatient (CLI) | payer MEDICARE, OTHER, SELFPAY ==
--- NOTE | 2025-02-19 08:00 | NM_ITS ---
WS: [id number] NUCLEAR MEDICINE HIDA SCAN WITH GALLBLADDER EJECTION FRACTION HISTORY: RUQ aching, burping, bloating COMPARISON: 12/04/2013, CT 02/08/2025 TECHNIQUE: The patient was intravenously injected with 7.6 mCi of TC99m Mebrofenin. Immediate imaging over the right upper quadrant was followed by 5 minute image and additional images for a total of 60 minutes. Normal uptake of radiotracer throughout the liver. Activity identified in the gallbladder at 20 minutes and well distended by 60 minutes. Activity in the proximal small bowel was seen by 15 minutes. Good washout of the radiotracer from the liver by 60 minutes. The patient then drank 8 ounces of Ensure Plus. Ejection fraction at 60 minutes was 92%. Normal GB ejection fraction is 35-75%. Post fatty meal symptoms: None. NM/NM hepatobiliary w phar* [id number] IMPRESSION: 1. Normal HIDA scan. 2. Normal gallbladder ejection fraction.
== END 2025-02-19 07:53 | disposition home or self-care (01) ==
LOC: RAD 07:53
PROVIDERS: PCP Family Medicine; Visit Provider Family Medicine
DX: R10.11 Right upper quadrant pain (principal); K21.9 Gastro-esophageal reflux disease without esophagitis; K44.9 Diaphragmatic hernia without obstruction or gangrene
CPT/HCPCS: 78227; A9537

== ENCOUNTER → 2025-02-24 12:53 | Outpatient (BNVA) | payer MEDICARE, OTHER, SELFPAY | PROVIDERS: PCP Family Medicine; Visit Provider Surgery | DX: K21.9 Gastro-esophageal reflux disease without esophagitis (principal) | CPT/HCPCS: 99204 ==

== ENCOUNTER 2025-03-04 07:52 | Day surgery (SDC) | payer MEDICARE, OTHER, SELFPAY ==
[2025-03-04 08:05] VITALS: BP 143/65; PULSE 78; RESP 18; TEMP 36.2; O2SAT 97; BMI 33.4
--- NOTE | 2025-03-04 08:22 | ANES.PREANE2 ---
Pre-Anesthetic Assessment Height/Weight: Height 1.68 m Weight 93.894 kg Temp Pulse Resp BP Pulse Ox O2 Del Method 97.1 F L 78 18 143/65 97 Room Air 03/04/25 08:05 03/04/25 08:05 03/04/25 08:05 03/04/25 08:05 03/04/25 08:05 03/04/25 08:05 Operation Date: 03/04/25 09:40 Proposed Procedures p EGD EGD with Biopsy 70167 k21.9(Not Applicable) - Yahir Jensen MD Familial anesthetic complications: None Was Beta Dalia taken within 24 hours: N/A Was Clonidine taken within 24 hours: N/A Last intake: Intake Last Liquid Date 03/03/25 Last Liquid Time 23:30 Last Solid Date 03/03/25 Last Solid Time 19:30 Social No alcohol and No tobacco Exam alert, oriented x 3, clear to auscultation bilaterally and regular rate & rhythm Airway Mallampati: Class II Dentition: full Pulmonary Sleep Apnea CV/HEM Anemia and Hypertension GI Gastroesophageal Reflux Disease Metabolic Morbid Obesity Anesthetic Plan ASA status: 3 Anesthesia: MAC Risk of > 500 ml blood loss (7ml/kg in children): No Medications/Allergies Home Medications ?Medication ?Instructions ?Recorded ?Confirmed ?Last Taken ?Type vit C,E,copper,[id number] 250 1 cap PO DAILY 10/20/19 03/01/25 03/01/25 History mg-lutein 5 mg-zeaxanthin 1 mg capsule (Ocuvite Adult 50 Plus) CPAP supplies #1 ea 02/21/21 02/24/25 Unknown Rx levothyroxine 75 mcg tablet 75 mcg PO DAILY #90 tabs 10/11/24 03/01/25 03/04/25 06:30 Rx (Unithroid) hydrochlorothiazide 12.5 mg tablet 12.5 mg PO DAILY #100 tabs 11/06/24 03/01/25 03/01/25 Rx duloxetine 60 mg capsule,delayed 60 mg PO BID #180 caps 02/16/25 03/01/25 03/01/25 Rx release lisinopril 20 mg tablet 20 mg PO BEDTIME #90 tabs 02/18/25 03/01/25 02/28/25 Rx atorvastatin 40 mg tablet 40 mg PO DAILY 03/01/25 03/01/2525 History lubiprostone 24 mcg capsule 24 mcg PO QAM 03/01/25 03/01/25 03/01/25 History (Amitiza) pantoprazole 40 mg tablet,delayed 40 mg PO DAILY 03/01/25 03/01/25 03/03/25 06:30 History release Allergies Allergy/AdvReac Type Severity Reaction Status Date / Time No Known Allergies Allergy Verified 03/04/25 08:03 Current Medications Generic Name Dose Route Start Last Admin Trade Name Freq PRN Reason Stop Dose Admin Sodium Chloride 1,000 mls @ 15 mls/hr 03/04/25 07:56 03/04/25 08:11 Sodium Chloride 0.9% IV 03/05/25 07:55 15 mls/hr .Q24H PRN Administration COLONOSCOPY FLUIDS PFSH Anesthesia Medical History (Updated 02/24/25 @ 12:57 by Latasha Iniguez, CT) Hiatal hernia with gastroesophageal reflux moderate retro cardiac; on CT Irritable bowel syndrome with predominant constipation Chronic neck pain Right side; going to [facility] Acid reflux Mixed hyperlipidemia CAL on CPAP Obesity Anxiety and depression Essential (primary) hypertension Adult onset hypothyroidism Surgical History (Updated 02/24/25 @ 12:57 by Latasha Iniguez, CT) Hx of colonoscopy 2.15.21--normal; repeat 10 yrs History of tubal ligation Status post rotator cuff repair 2012 Left History of hysterectomy 2003 with right SO has left ovary; no cancer; done for heavy bleeding Family History Family/Other Diabetes Heart disease Social History Smoking and tobacco/nicotine status: never used tobacco/nicotine Second hand smoke exposure: No Alcohol intake: never Substance/Drug Use: never Caregiver/support person: No Lives independently: Yes Household members: spouse Housing: House Marital status: Number of children: 3 Highest education level completed: High School Graduate service: No Current occupational status: employed and retired Current occupation: [employer] Pets and animals: No Do you think of yourself as: Straight/Heterosexual Current gender identity: Female Data Anesthesia Cardiac Studies: Echocardiogram 02/15/22
--- NOTE | 2025-03-04 09:32 | W.PM.OPSUD ---
Surgery/Procedure H&P Update DATE OF PROCEDURE: March 04, 2025 DATE H&P PERFORMED: 02/24/25 H&P UPDATE INFORMATION: I have reviewed H&P completed within last 30 days, I have examined patient prior to procedure, No changes to prior documentation, H&P is in [facility] EMR on date indicated and Risks and benefits of the procedure reviewed PLANNED PROCEDURE: Operation Date: 03/04/25 09:40 Proposed Procedures p EGD EGD with Biopsy 53833 k21.9(Not Applicable) - Yahir Jensen MD
[2025-03-04 10:10] VITALS: BP 140/82; PULSE 94; RESP 18; TEMP 36.1; O2SAT 91
[2025-03-04 10:24] VITALS: BP 128/67; PULSE 78; RESP 18; O2SAT 97
--- NOTE | 2025-03-04 10:50 | ANE.PACU2 ---
Inpatient post-anesthesia follow up: Airway intact: Yes Vital signs: Temperature 97 F Pulse Rate 78 Respiratory Rate 18 Blood Pressure 128/67 Pulse Oximetry 97 Oxygen Delivery Me thod Room Air Oxygen Flow Rate Fraction of Inspir ed Oxygen Hydration adequate: Yes Nausea and vomiting: No Pain level: 1 Mental status: Baseline
== END 2025-03-04 10:50 | disposition home or self-care (01) ==
PROVIDERS: PCP Family Medicine; Visit Provider Surgery
PROC: 0DJ08ZZ Inspection of Upper Intestinal Tract, Via Natural or Artificial Opening Endoscopic (ICD-10-PCS; principal; 2025-03-04 09:40)
DX: R13.19 Other dysphagia (principal); K21.9 Gastro-esophageal reflux disease without esophagitis; K44.9 Diaphragmatic hernia without obstruction or gangrene; D64.9 Anemia, unspecified; I10 Essential (primary) hypertension; E66.01 Morbid (severe) obesity due to excess calories; Z68.33 Body mass index [BMI] 33.0-33.9, adult; G47.33 Obstructive sleep apnea (adult) (pediatric); Z99.89 Dependence on other enabling machines and devices; E78.2 Mixed hyperlipidemia; E03.9 Hypothyroidism, unspecified; F41.8 Other specified anxiety disorders
CPT/HCPCS: 43239; 88305; J2704; J7030

== ENCOUNTER 2025-03-10 11:34 | Outpatient (CLI) | payer MEDICARE, OTHER, SELFPAY ==
--- NOTE | 2025-03-10 11:42 | MM_ITS ---
WS: [id number] BILATERAL 3D TOMOSYNTHESIS DIGITAL SCREENING MAMMOGRAPHY WITH CAD CLINICAL INFORMATION: SCREENING HISTORY: Screening mammogram. No current complaints. COMPARISON: 2023 TECHNIQUE: Bilateral CC and MLO views. FINDINGS: Scattered fibroglandular densities bilaterally. No suspicious focal mass, asymmetry, calcifications, or architectural distortion. No evidence of malignancy. Incidental punctate and lucent centered calcifications RIGHT breast. MM/MM scr tomosynthesis [id number] IMPRESSION: DENSITY: There are scattered areas of fibroglandular density. BI-RADS: 2 - Benign. FOLLOW UP: 1 Year Follow-up Recommend return to annual screening mammography.
== END 2025-03-10 11:35 | disposition home or self-care (01) ==
PROVIDERS: PCP Family Medicine; Visit Provider Family Medicine
DX: Z12.31 Encounter for screening mammogram for malignant neoplasm of breast (principal); R92.323 Mammographic fibroglandular density, bilateral breasts; R92.1 Mammographic calcification found on diagnostic imaging of breast
CPT/HCPCS: 77063; 77067

== ENCOUNTER → 2025-03-22 08:10 | Outpatient (BNVA) | payer MEDICARE, OTHER, SELFPAY | PROVIDERS: PCP Family Medicine; Visit Provider Surgery | DX: Z51.89 Encounter for other specified aftercare (principal) | CPT/HCPCS: 99213 ==